=== PATIENT | female | born 1960 | race Caucasian/White ===

== ENCOUNTER 2019-11-08 19:15 | Emergency (ER) | payer OTHER, SELFPAY ==
[~2019-11-08] VITALS: Ht 157.5 cm; Wt 74.8 kg
[~2019-11-08 19:15] MED LIST: ETOD400T4 PO
[2019-11-08 19:43] VITALS: BP 145/97
--- NOTE | 2019-11-08 19:45 | NUR ---
PT IN TENT
[2019-11-08 20:50] VITALS: BP 145/97
--- NOTE | 2019-11-08 20:50 | NUR ---
Patient discharged with v/s stable. Written and verbal after care instructions given and explained. Patient alert, oriented and verbalized understanding of instructions. Ambulatory with steady gait. All questions addressed prior to discharge. ID band removed. Patient advised to follow up with PMD. Rx of COMPAZINE, AZITHROMYCIN, PREDNISONE given. Patient educated on indication of medication including possible reaction and side effects. Opportunity to ask questions provided and answered.
--- NOTE | 2019-11-08 20:50 | NUR ---
COVID SWAB COLLECTED AND TAKEN TO LAB
== END 2019-11-08 20:50 | disposition home or self-care (01) ==
LOC: MED 19:15 → EEVIPCON 19:15 → MED 20:50
DX: R50.9 Fever, unspecified (principal); J02.9 Acute pharyngitis, unspecified; M79.10 Myalgia, unspecified site; Z20.828 Contact with and (suspected) exposure to other viral communicable diseases
CPT/HCPCS: 71045; 99284; Q0092; U0003